=== PATIENT | male | born 1955 | race Caucasian/White ===

== ENCOUNTER 2024-10-05 07:57 | Inpatient (IN) | payer MEDICARE ==
[2024-10-05] MEDS ORDERED: Nitroglycerin 0.4 MG Tab.SL SL PRN (13:16)
[2024-10-05] MEDS ORDERED: Melatonin 3 MG Tab PO PRN (13:22)
[2024-10-05] MEDS: hydrOXYzine Pamoate 25 MG Cap PO PRN (13:47)
[2024-10-05] MEDS: oxyCODONE 5 MG Tab PO PRN ×2 (13:47→17:50)
[2024-10-05] MEDS: Cyclobenzaprine 10 MG Tab PO PRN (16:42)
[2024-10-05] MEDS: Albuterol 6.7 GM Inhaler INH PRN (17:52)
[2024-10-05] MEDS: Pantoprazole 40 MG Tab.CR PO SCH (17:53)
[2024-10-05] MEDS: traZODone 50 MG Tab PO SCH (21:22)
[2024-10-05] MEDS: Metoprolol Tartrate 50 MG Tab PO SCH (21:24)
[2024-10-05] MEDS: Acetaminophen 500 MG Tab PO PRN (21:24)
[2024-10-06] MEDS ORDERED: Non-Formulary Medication 1 Each (Potassium Gluconate [Potassium] 99 MG Tablet) PO SCH (09:00)
[2024-10-06] MEDS ORDERED: DULoxetine 60 MG Cap PO SCH (09:00)
[2024-10-06] MEDS: DULoxetine 30 MG Cap PO SCH (09:36)
[2024-10-06] MEDS: Multivitamins with Iron/Calcium/Folic Acid/Minerals Tab PO SCH (09:36)
[2024-10-06] MEDS: Tamsulosin 0.4 MG Cap.ER PO SCH (09:36)
[2024-10-06] MEDS: Rosuvastatin 20 MG Tab PO SCH (09:36)
[2024-10-06] MEDS: Folic Acid 0.4 MG Tab PO SCH (09:37)
[2024-10-06] MEDS: amLODIPine 5 MG Tab PO SCH (09:37)
[2024-10-06] MEDS: Aspirin 81 MG Tab.EC PO SCH (09:37)
[2024-10-06] MEDS: Clopidogrel 75 MG Tab PO SCH (09:37)
[2024-10-06] MEDS: Tiotropium BR/Olodaterol HCL 4 GM Inhalation Spray 2.5mcg/1 dose; 10 doses INH SCH (09:39)
[2024-10-07] MEDS: Sennosides 8.6 MG Tab PO PRN (04:29)
[2024-10-07 08:08] VITALS: BP 141/75; PULSE 93
== END 2024-10-07 12:00 | disposition home or self-care (01) | DRG 948 ==
LOC: FB.MS 11:35
PROVIDERS: ADMIT Internal Medicine; ATTEND Internal Medicine
DX: R53.81 Other malaise (principal); F10.239 Alcohol dependence with withdrawal, unspecified; D62 Acute posthemorrhagic anemia; E87.0 Hyperosmolality and hypernatremia; I10 Essential (primary) hypertension; E78.5 Hyperlipidemia, unspecified; F17.210 Nicotine dependence, cigarettes, uncomplicated; E66.9 Obesity, unspecified; E21.3 Hyperparathyroidism, unspecified; F41.9 Anxiety disorder, unspecified; F32.A Depression, unspecified; K21.9 Gastro-esophageal reflux disease without esophagitis; K70.30 Alcoholic cirrhosis of liver without ascites; J44.9 Chronic obstructive pulmonary disease, unspecified; E78.00 Pure hypercholesterolemia, unspecified; Z79.51 Long term (current) use of inhaled steroids; Z79.1 Long term (current) use of non-steroidal anti-inflammatories (NSAID); Z79.82 Long term (current) use of aspirin; Z79.899 Other long term (current) drug therapy; Z87.01 Personal history of pneumonia (recurrent); Z95.1 Presence of aortocoronary bypass graft; Z68.31 Body mass index [BMI] 31.0-31.9, adult; I25.2 Old myocardial infarction; Z95.5 Presence of coronary angioplasty implant and graft; Z98.890 Other specified postprocedural states; Z87.81 Personal history of (healed) traumatic fracture
CPT/HCPCS: 97161-GP; 97165-GO; 97530-GP; 99304; 99315; A9270-GY